=== PATIENT | female | born 1990 | race Two or more races ===

== ENCOUNTER 2025-01-03 15:17 | Emergency (ER) | payer MEDICAID, SELFPAY ==
[2025-01-03 15:18] VITALS: BMI 22.4
--- NOTE | 2025-01-03 15:45 | XR_ITS ---
Examination: CT abdomen and pelvis without contrast. Coronal 3-D reconstructions. Sagittal 2-D reconstructions. Date and time of exam:January 03, 2025 1815 hrs. Indications: Sudden onset left-sided flank pain radiating to the back today CTDI: vol (mGy): 4.84 DLP: (mGycm): 217 Technique: Axial images of the abdomen have been obtained, 3 mm slice thickness Intravenous contrast material has not been administered. Low dose protocols were performed. One or more of the following dose reduction techniques were used; automated exposure control, adjustment of the mA and/or KV according to patient size, use of iterative reconstruction technique. Findings: No focal liver or splenic lesion No gallstones No pancreatic or adrenal mass 2 mm upper pole left renal calculus Minimal left hydronephrosis secondary to 3 mm proximal left ureteral calculus Aorta normal size Normal appendix Intact urinary bladder Impression: Minimal left hydronephrosis secondary to 3 mm proximal left ureteral calculus
--- NOTE | 2025-01-03 15:45 | PD.EDRME ---
Rapid Medical Screening Exam RME Arrival date/time: 01/03/25 15:17 34-year-old female with no known medical history presents to the emergency room with a chief complaint of left flank pain, dysuria x 2 days I have greeted and performed a focused initial assessment of this patient. A comprehensive ED assessment and evaluation of the patient, analysis of all test results, and completion of the medical decision making process will be conducted by additional ED providers. Chief Complaint: Urogenital-Female Time Seen by Provider: 01/03/25 15:24 Vital signs reviewed by provider: Yes
[2025-01-03 15:50] VITALS: BP 140/96; PULSE 64; RESP 19; TEMP 36.7; O2SAT 100
[2025-01-03 16:26] LABS: Basophils % (Auto) 0 % (0-2.5); Eosinophils % (Auto) 0 % (0-10); Hematocrit 38.9 % (36.0-46.0); Hemoglobin 13.4 g/dL (12.0-16.0); Immature Granulocytes % (Auto) 0 % (0-0); Immature Granulocytes Auto 0.06 Thou/mm3 (0.00-0.00); Lymphocytes # (Auto) 1.6 Thou/mm3 (1.0-4.8); Lymphocytes % (Auto) 11 % (10-50); Mean Corpuscular HGB Conc 34.4 g/dl (31.0-37.0); Mean Corpuscular Hemoglobin 30.1 pg (25.0-35.0); Mean Corpuscular Volume 87 fL (80-100); Monocytes # (Auto) 0.5 Thou/mm3 (0.0-0.8); Monocytes % (Auto) 3 % (0-12); Neutrophils # (Auto) 12.9 Thou/mm3 (1.8-7.7); Neutrophils % (Auto) 85 % (37-80); Nucleated Red Blood Cell % 0 /100 WBC (0); Platelet Count 203 Thou/mm3 (140-440); RDW Standard Deviation 39.4 fL (36.4-46.3); Red Blood Count 4.45 Miln/mm3 (4.00-5.20); White Blood Count 15.1 Thou/mm3 (3.6-11.0)
[2025-01-03 16:41] LABS: Collection Type, Urine Clean Catch
[2025-01-03 16:54] LABS: Alanine Aminotransferase 10 U/L (10-49); Albumin, Serum 4.7 gm/dL (3.5-5.0); Anion Gap 11 (7-16); Aspartate Amino Transferase 17 U/L (0-34); BUN/Creatinine Ratio 14 Ratio (12-20); Bilirubin,Total 0.5 mg/dL (0.3-1.2); Blood Urea Nitrogen 14 mg/dL (9-23); Calcium 9.5 mg/dL (8.3-10.6); Calcium (Corrected) 9.5 mg/dL (8.5-10.1); Carbon Dioxide 22.1 mMol/L (20.0-31.0); Chloride 106 mMol/L (98-107); Estimated Creatinine Clearance 56.9 mL/min (>60); Globulin 2.8 gm/dL (2.3-3.5); Glucose 123 mg/dL (74-106); Osmolality,Calculated 279 (275-295); Potassium 3.5 mMol/L (3.4-5.1); Sodium 139 mMol/L (136-145); Total Protein 7.5 gm/dL (5.7-8.2); eGFR > 60 See Note
[2025-01-03 16:55] LABS: Albumin/Globulin Ratio 1.7 (1.2-2.2); Alkaline Phosphatase 51 U/L (46-116); Lipase 46 U/L (12-53)
[2025-01-03 17:04] LABS: Bacteria,Urine 1+; Bilirubin,Urine Negative (Negative); Blood,Urine 3+ (Negative); Glucose, Urine Negative (Negative); Ketones,Urine 2+ (Negative); Leukocyte Esterase,Urine Positive (Negative); Nitrite,Urine Negative (Negative); PH,Urine 5.5 (5.0-7.0); Protein,Urine 2+ (Neg - Trace); RBC,Urine 3112 /hpf (0-3); Specific Gravity,Urine 1.033 (1.001-1.035); Squamous Epithelial Cell,Urine 33 /hpf (0-5); Transitional Epi Cells,Urine 3 /hpf (0-5); Urobilinogen,Urine Negative mg/dL (0.0-1.0); WBC,Urine 16 /hpf (0-5)
[2025-01-03 17:07] LABS: Clarity,Urine Turbid (Clear/Hazy); Color,Urine Yellow (Lt Yel-Yel)
[2025-01-03 17:15] LABS: HCG Qualitative,Urine Negative
--- NOTE | 2025-01-03 20:15 | PRELIM_ITS ---
CT scan of the abdomen and pelvis without intravenous contrast (axial sections with sagittal and coronal reformats) January 03, 2025 1815 hours Clinical History: abd pain No prior study is available for comparison. Findings: The lung bases are clear. There is a 3 mm obstructing calculus in the left proximal ureter causing mild hydroureteronephrosis (axial images 72/211) and periureteric/perinephric fat stranding. The liver, gallbladder, pancreas, spleen, right kidney and adrenals are unremarkable on this noncontrast study. No evidence of bowel obstruction. A moderate amount of fecal material is present in the colon. Anastomoses suture is noted in the small bowel.The appendix is within normal limits (coronal images 48-63/116). There is no mesenteric or retroperitoneal adenopathy. The urinary bladder is unremarkable. There are bilateral ovarian follicles.There is no free fluid or free air. The osseous structures are unremarkable. Impression: 3 mm obstructing calculus in the left proximal ureter causing mild hydroureteronephrosis. Report Electronically Signed By: Luis Enrique Garcia 01/03/2025 8:13:52 PM [EST]
--- NOTE | 2025-01-03 22:16 | PD.EDFMALE ---
ED Female Urogenital RME/HPI General Chief complaint: Urogenital-Female Stated complaint: Left flank pain x 1 hour, NV Time Seen by Provider: 01/03/25 15:24 Arrival date/time: 01/03/25 15:17 RME / HPI RME / HPI Narrative: 01/03/25 15:17 34-year-old female with no known medical history presents to the emergency room with a chief complaint of left flank pain, dysuria x 2 days I have greeted and performed a focused initial assessment of this patient. A comprehensive ED assessment and evaluation of the patient, analysis of all test results, and completion of the medical decision making process will be conducted by additional ED providers. 34 yo female patient c/o left flank pain Related Data Home Medications ?Medication ?Instructions ?Recorded ?Confirmed ferrous sulfate 325 mg (65 mg 325 mg PO BID 03/07/19 03/08/19 iron) tablet (iron) folic acid 1 mg tablet 1 mg PO QDAY 03/07/19 03/08/19 vit no.133-ferrous 28 mg PO DAILY 03/07/19 03/08/19 fumarate 28 mg-folic acid 800 mcg tablet () Previous Rx's ?Medication ?Instructions ?Recorded cephalexin 500 mg capsule 500 mg PO TID #15 caps 01/03/25 ibuprofen 600 mg tablet 600 mg PO Q6H PRN pain #30 tabs 01/03/25 tamsulosin 0.4 mg capsule (Flomax) 0.4 mg PO QDAY #14 caps 01/03/25 Allergies Allergy/AdvReac Type Severity Reaction Status Date / Time NKA* Allergy Uncoded 03/08/19 00:57 Course Orders Category Date Time Status CT abdomen pelvis wo con Stat Exams 01/03/25 15:45 Completed CBC Stat Lab 01/03/25 16:05 Completed CMP [Comprehensive Metabolic Panel] Stat Lab 01/03/25 16:05 Completed HCG Qualitative,Urine Stat Lab 01/03/25 16:32 Completed Lipase Stat Lab 01/03/25 16:05 Completed UA [Urinalysis] Stat Lab 01/03/25 16:32 Completed Urine Culture Stat Lab 01/03/25 16:32 Received HYDROcodone*/APAP 5/325 [[place] 5/325] Med 01/03/25 22:16 Once 1 tab PO X1 ONE Ketorolac Inj [Toradol Inj] Med 01/03/25 22:12 Discontinued 30 mg IM X1 ONE Tamsulosin HCl [Flomax] Med 01/03/25 22:11 Discontinued 0.4 mg PO X1 ONE cephALEXin [Keflex] Med 01/03/25 22:11 Discontinued 500 mg PO X1 ONE Vital Signs Vital signs: Vital Signs Temperature 98.1 F 01/03/25 15:50 Pulse Rate 64 01/03/25 15:50 Respiratory Rate 19 01/03/25 15:50 Blood Pressure 140/96 H 01/03/25 15:50 Pulse Oximetry (%) 100 01/03/25 15:50 Oxygen Delivery Method Room Air 01/03/25 15:50 Urogenital - Female Medications / Prescriptions Medication administrations:: Medication Administration History Hydrocodone Bitart/Acetaminophen (Hydrocodone/Apap 5/325 Tablet) 1 tab PO X1 ONE Stop: 01/03/25 22:17 Discontinued Medications Cephalexin HCl (Cephalexin 250 Mg Capsule) 500 mg PO X1 ONE Stop: 01/03/25 22:12 Ketorolac Tromethamine (Ketorolac Inj 30 Mg/Ml Vial) 30 mg IM X1 ONE Stop: 01/03/25 22:13 Tamsulosin HCl (Tamsulosin Hcl 0.4 Mg Capsule) 0.4 mg PO X1 ONE Stop: 01/03/25 22:12 Discharge Plan Plan Patient Disposition: HOME (Self Care) Prescriptions/Referrals Prescriptions/Med Rec: New tamsulosin [Flomax] 0.4 mg capsule 0.4 mg PO QDAY Qty: 14 0RF ibuprofen 600 mg tablet 600 mg PO Q6H PRN (Reason: pain) Qty: 30 0RF cephalexin 500 mg capsule 500 mg PO TID Qty: 15 0RF No Action 28-800 mg-mcg Tablet 28 mg PO DAILY ferrous sulfate [iron] 325 mg (65 mg iron) Tablet 325 mg PO BID folic acid 1 mg Tablet 1 mg PO QDAY Referrals: No Primary/Family,Physician [Primary Care Provider] - In 1 week Problem List Clinical Impression: Left ureteral calculus, UTI (urinary tract infection) Patient/Caregiver Discharge Instructions Education Materials: ED CYSTITIS Female Adult, ED Kidney Stone w/ Colic Print Language: [place] Stand Alone Forms: [facility] Award Info., Patient Portal Info Letter
[2025-01-03] MEDS: KETOROLAC INJ 30 MG/ML VIAL IM (22:32)
[2025-01-03] MEDS: cephALEXin 250 MG CAPSULE 500 MG PO (22:32)
[2025-01-03] MEDS: HYDROcodone/APAP 5/325 TABLET 1 TAB PO (22:32)
[2025-01-03] MEDS: TAMSULOSIN HCL 0.4 MG CAPSULE PO (22:32)
[2025-01-03 22:38] VITALS: BP 148/95; PULSE 58; RESP 16; O2SAT 100
== END 2025-01-03 22:39 | disposition home or self-care (01) ==
PROVIDERS: Nurse Practitioner Family; Emergency Provider Emergency Medicine
DX: N20.1 Calculus of ureter (principal); N39.0 Urinary tract infection, site not specified
CPT/HCPCS: 36415; 74176; 80053; 81001; 81025; 83690; 85025; 87086; 96372; 99284; J1885; A9270